=== PATIENT | male | born 1955 | race Caucasian/White ===

== ENCOUNTER 2016-11-19 08:20 | Observation (INO) | payer SELFPAY ==
[2016-11-19] MEDS ORDERED: PANTOPRAZOLE INJECTION 80 MG in SODIUM CHLORIDE 0.9% 100ML 80 ML IVPB ONE (09:12)
[2016-11-19] MEDS ORDERED: NITROGLYCERIN 0.4 MG 25 EA TAB SL ONE (09:12)
[2016-11-19] MEDS ORDERED: SODIUM CHLORIDE 0.9% (FLUSH) 10 ML SYG IV PRN ×2 (09:12→15:49)
[2016-11-19] MEDS ORDERED: ASPIRIN TABLET 325 MG TAB PO ONE (09:12)
[2016-11-19] MEDS ORDERED: SODIUM CHLORIDE 0.9% 100ML 100 ML IVPB ONE (09:41)
[2016-11-19] MEDS ORDERED: PANTOPRAZOLE SODIUM IV 40 MG VIAL ONE (09:41)
--- NOTE | 2016-11-19 09:41 | ED.PDOC ---
History of Present Illness - General Chief Complaint: GI Problem Stated Complaint: Dark tarry stools Time Seen by Provider: 11/19/16 08:55 Source: patient, RN notes reviewed, Vital Signs reviewed Exam Limitations: no limitations - History of Present Illness Initial Comments: Romain Ji61 y/o male stated that broke into cold sweats last night and felt nauseated then went to have bowel movement noticed black tarry stool on wiping his stool.Also on waking up this am had stabbing epigastric pain going up to his chest with sob.Gone on arrival at er. No hematemasis;no recurrent nausea/vomiting. Had been taking multiple doses of aleve and ibuprofen a day for his right foot pain for the last one year. Timing/Duration: 24 hours Severity: moderate Improving Factors: nothing Worsening Factors: nothing Associated Symptoms: shortness of breath Allergies/Adverse Reactions: Allergies NO KNOWN ALLERGY Allergy (Verified 11/19/16 08:46) Home Medications: Ambulatory Orders Anti-Depressant PO DAILY 11/19/16 Bp Med PO DAILY 11/19/16 Cholesterol Med PO DAILY 11/19/16 Review of Systems - Review of Systems Constitutional: States: no symptoms reported EENTM: States: no symptoms reported Respiratory: States: see HPI Cardiology: States: see HPI Gastrointestinal/Abdominal: States: see HPI Genitourinary: States: no symptoms reported Musculoskeletal: States: no symptoms reported, joint pain - right foot Skin: States: no symptoms reported Neurological: States: no symptoms reported Endocrine: States: no symptoms reported Hematologic/Lymphatic: States: no symptoms reported Past Medical History (General) - Patient Medical History Hx Stroke: No Hx Cardiac Disorders: Yes - Hypercholesterolemia Hx Congestive Heart Failure: No Hx Hypertension: Yes Hx Diabetes: No Hx MRSA: No Hx Other PMH: Yes - chronic right foot pain Surgical History: cholecystectomy, other - foot surgery right - Vaccination History Hx Influenza Vaccination: No Hx Pneumococcal Vaccination: No - Social History Hx Tobacco Use: Yes Years Tobacco Use: 48 Cigarettes Packs Per Day: 30 Hx Alcohol Use: No Hx Depression: No - Activities of Daily Living Patient Lives Alone: No - family Family Medical History - Family History Father Living Status: Hx Family Hypertension: Yes Hx Cardiac Disease: Yes - mom,dad,sister-cad Hx Family Cancer: Yes - mom-lung Physical Exam - Physical Exam General Appearance: Alert, Comfortable, No apparent distress Eye Exam: bilateral normal Ears, Nose, Throat: hearing grossly normal, normal ENT inspection, normal pharynx Neck: non-tender, full range of motion, supple Respiratory: chest non-tender, lungs clear, normal breath sounds, no respiratory distress Cardiovascular/Chest: normal peripheral pulses, regular rate, rhythm, no gallop , no JVD, systolic murmur - g 2/6 Peripheral Pulses: radial,right: 2+, radial,left: 2+ Gastrointestinal/Abdominal: normal bowel sounds, non tender, soft, no organomegaly Rectal Exam: normal rectal tone, black stool, heme positive stool Back Exam: normal inspection, no CVA tenderness, no vertebral tenderness Extremity: normal range of motion, non-tender, normal inspection Neurologic: no motor/sensory deficits, alert, normal mood/affect, oriented x 3 Skin Exam: normal color, warm/dry Lymphatic: no adenopathy Progress - Results/Orders Results/Orders: Vital Signs - 8 hr 11/19/16 11/19/16 11/19/16 08:47 09:14 09:38 Temperature 98.1 F Pulse Rate [ 90 83 Apical] Respiratory 22 22 Rate Blood Pressure 113/75 149/75 [Left Arm] O2 Sat by Pulse 94 L 94 L 95 Oximetry 11/19/16 11/19/16 11/19/16 09:45 10:14 10:20 Temperature 97.7 F Pulse Rate [ 87 84 86 Apical] Respiratory 22 22 22 Rate Blood Pressure 118/79 133/84 90/59 [Left Arm] O2 Sat by Pulse 93 L 91 L 92 L Oximetry 11/19/16 09:12 IV Care:Saline Lock per [facility] QSVAFT Telemetry .ONCE Sodium Chloride 0.9% (Flush) [Saline Flush Syringe] 10 ml IV PRN PRN EKG Stat Pulse Ox Stat Chest,1 View [RAD] Stat 11/19/16 09:13 Pulse Oximetry Assessment DAILY 11/19/16 09:46 Foot,Right 2 Views [RAD] Stat Laboratory Results WBC 12.7 K/mm3 (4.8-10.8) H 11/19/16 09:45 RBC 5.25 M/mm3 (4.70-6.10) 11/19/16 09:45 Hgb 15.7 gm/dL (14.0-18.0) 11/19/16 09:45 Hct 48.1 % (42.0-52.0) 11/19/16 09:45 MCV 91.5 fl (80.0-94.0) 11/19/16 09:45 MCH 29.8 pg (27.0-31.0) 11/19/16 09:45 MCHC 32.6 g/dL (33.0-37.0) L 11/19/16 09:45 RDW 14.9 % (11.5-14.5) H 11/19/16 09:45 Plt Count 169 K/mm3 (130-400) 11/19/16 09:45 MPV 8.7 fl (7.40-10.4) 11/19/16 09:45 Absolute Neuts (auto) 10.00 K/uL (1.8-6.8) H 11/19/16 09:45 Absolute Lymphs (auto) 1.40 K/uL (1.0-3.4) 11/19/16 09:45 Absolute Monos (auto) 1.10 K/uL (0.2-0.8) H 11/19/16 09:45 Absolute Eos (auto) 0.10 K/uL (0.0-0.4) 11/19/16 09:45 Absolute Basos (auto) 0.10 K/uL (0.0-0.1) 11/19/16 09:45 Neutrophils % 78.8 % (42.0-78.0) H 11/19/16 09:45 Lymphocytes % 10.8 % (20.0-50.0) L 11/19/16 09:45 Monocytes % 8.7 % (2.0-9.0) 11/19/16 09:45 Eosinophils % 1.0 % (1.0-5.0) 11/19/16 09:45 Basophils % 0.7 % (0.0-2.0) 11/19/16 09:45 PT 11.4 SECONDS (9.4-12.5) 11/19/16 09:45 INR 1.010 11/19/16 09:45 PTT (SP) 28.6 SECONDS (25.1-36.5) 11/19/16 09:45 D-Dimer, Quantitative < 230 ng/mL (0-230) 11/19/16 09:45 Sodium 138 mmol/L (135-145) 11/19/16 09:45 Potassium 5.2 mmol/L (3.6-5.0) H 11/19/16 09:45 Chloride 102 mmol/L (101-111) 11/19/16 09:45 Carbon Dioxide 30 mmol/L (21-31) 11/19/16 09:45 Anion Gap 11.2 (12-18) L 11/19/16 09:45 BUN 37 mg/dL (7-18) H 11/19/16 09:45 Creatinine 0.64 mg/dL (0.6-1.3) 11/19/16 09:45 BUN/Creatinine Ratio 57.8 (10-20) H 11/19/16 09:45 Random Glucose 119 mg/dL (70-105) H 11/19/16 09:45 Serum Osmolality 285.5 mOsm/L (275-295) 11/19/16 09:45 Uric Acid mg/dL (2.6-7.2) 11/19/16 09:45 Calcium 9.0 mg/dL (8.4-10.2) 11/19/16 09:45 Magnesium 2.1 mg/dL (1.8-2.5) 11/19/16 09:45 Total Bilirubin 0.9 mg/dL (0.2-1.0) 11/19/16 09:45 Direct Bilirubin 0.1 mg/dL (0-0.2) 11/19/16 09:45 Indirect Bilirubin 0.8 mg/dL (0.2-0.8) 11/19/16 09:45 AST 21 IU/L (10-42) 11/19/16 09:45 ALT 22 IU/L (10-60) 11/19/16 09:45 Alkaline Phosphatase 71 IU/L (42-121) 11/19/16 09:45 Creatine Kinase 177 IU/L (38-174) H 11/19/16 09:45 CK-MB (CK-2) 5.7 ng/mL (0.0-4.4) H* 11/19/16 09:45 CK-MB (CK-2) % 3.22 % (0.0-3.5) 11/19/16 09:45 Troponin I 0.03 ng/mL (0.01-0.05) 11/19/16 09:45 B-Natriuretic Peptide 17.4 pg/ml (0-100) 11/19/16 09:45 Serum Total Protein 6.7 gm/dL (6.4-8.2) 11/19/16 09:45 Albumin 3.8 g/dl (3.2-5.5) 11/19/16 09:45 Urine Color Yellow (Yellow) 11/19/16 09:59 Urine Appearance Clear (Clear) 11/19/16 09:59 Urine pH 6.0 (4.5-7.8) 11/19/16 09:59 Ur Specific [place] 1.010 (1.005-1.030) 11/19/16 09:59 Urine Protein Negative mg/dL 11/19/16 09:59 Urine Glucose (UA) Negative mg/dL (Negative) 11/19/16 09:59 Urine Ketones Negative mg/dL (NEGATIVE) 11/19/16 09:59 Urine Blood Negative (Negative) 11/19/16 09:59 Urine Nitrite Negative 11/19/16 09:59 Urine Bilirubin Negative (NEGATIVE) 11/19/16 09:59 Urine Urobilinogen 0.2 mg/dL (0.2-1.0) 11/19/16 09:59 Ur Leukocyte Esterase Negative (Negative) 11/19/16 09:59 Urine RBC 0 /hpf 11/19/16 09:59 Urine WBC 0 /hpf 11/19/16 09:59 Ur Epithelial Cells 0-1 /hpf 11/19/16 09:59 Urine Bacteria 0 11/19/16 09:59 Stool Occult Blood Positive 11/19/16 09:06 Urine Opiates Screen Negative ng/mL (2000) 11/19/16 09:48 Urine Barbiturates Negative ng/mL (200) 11/19/16 09:48 Ur Phencyclidine Scrn Negative ng/mL (25) 11/19/16 09:48 U Amphetamin/Meth Scrn Negative ng/mL (1000) 11/19/16 09:48 U Benzodiazepines Scrn Negative ng/mL (200) 11/19/16 09:48 U Cocaine Metab Screen Negative ng/mL (300) 11/19/16 09:48 U Cannabinoids Screen Negative ng/mL (50) 11/19/16 09:48 Vital Signs - 8 hr 11/19/16 11/19/16 11/19/16 08:47 09:14 09:38 Temperature 98.1 F Pulse Rate [ 90 83 Apical] Respiratory 22 22 Rate Blood Pressure 113/75 149/75 [Left Arm] O2 Sat by Pulse 94 L 94 L 95 Oximetry 11/19/16 11/19/16 11/19/16 09:45 10:14 10:20 Temperature 97.7 F Pulse Rate [ 87 84 86 Apical] Respiratory 22 22 22 Rate Blood Pressure 118/79 133/84 90/59 [Left Arm] O2 Sat by Pulse 93 L 91 L 92 L Oximetry 11/19/16 11/19/16 11/19/16 10:29 10:59 11:21 Temperature Pulse Rate [ 88 85 84 Apical] Respiratory 22 22 20 Rate Blood Pressure 118/74 125/58 116/85 [Left Arm] O2 Sat by Pulse 92 L 93 L 90 L Oximetry 11/19/16 11:24 Temperature Pulse Rate [ 92 H Apical] Respiratory 20 Rate Blood Pressure 94/56 [Left Arm] O2 Sat by Pulse 91 L Oximetry Discuss test result with patient as well as gi bleeding from nsaid use recommending admit to hospital for obs agreed with plan. - EKG/XRAY/CT EKG: Sinus, no ST T wave changes Comments: heart Rate-92 Departure - Departure Clinical Impression: GI bleed due to NSAIDs Time of Disposition: 11:28 - D/W Dr. Ruffin-Hospitalist for admit obs Disposition: Admit Patient Condition: Fair Departure Forms: Patient Portal Self Enrollment Referrals: Elissa Hutton NP [Primary Care Provider] - 1-2 Weeks Home Medications: Ambulatory Orders Anti-Depressant PO DAILY 11/19/16 Bp Med PO DAILY 11/19/16 Cholesterol Med PO DAILY 11/19/16
[2016-11-19] MEDS ORDERED: SODIUM CHLORIDE 0.9% 500ML 500 ML IVS ONE (11:02)
[2016-11-19] MEDS ORDERED: NICOTINE PATCH 21 MG TD ONE (11:13)
--- NOTE | 2016-11-19 11:29 | RAD ---
EXAM DESCRIPTION: Foot,Right 2 Views CLINICAL HISTORY: pain COMPARISON: None FINDINGS: AP and lateral views of the right foot were submitted. There is an enthesophyte at the insertion of the Achilles tendon. There is no acute fracture or dislocation. Bone mineralization is within normal limits. There is no radiopaque foreign body material. IMPRESSION: No acute fracture or dislocation. Electronically signed by: Virgil Castro MD 11/19/2016 11:29 AM CDT
--- NOTE | 2016-11-19 12:18 | RAD ---
EXAM DESCRIPTION: Chest,1 View CLINICAL HISTORY: pain COMPARISON: October 21, 2015 FINDINGS: Cardiac silhouette is within normal limits. There is no focal parenchymal or pleural disease. There is no acute osseous process visualized. There is mild peribronchial cuffing at the central level which could be secondary to reactive airway disease. IMPRESSION: Mild peribronchial cuffing at the central level could be secondary to reactive airway disease. Electronically signed by: Virgil Castro MD 11/19/2016 12:19 PM CDT
--- NOTE | 2016-11-19 12:23 | HP ---
HISTORY OF PRESENT ILLNESS: This 61 year-old white male is placed in the hospital for overnight observation because of the sudden onset of noticeable gastrointestinal bleeding with black bowel movements yesterday afternoon. He has had some epigastric discomfort which has persisted. It is burning in character and no previous history of similar symptoms in the past. He did vomit once last evening but it was bile-stained acidic fluid with no blood in it. He did have a bowel movement yesterday afternoon. Part of the bowel movement was normal color and the last part of it was black in coloration. In the Emergency Room, he was noted to have a stool guaiac positive on digital exam. Tilt vitals did drop from a systolic of 125 supine down to 94 standing while the pulse increased from 85 to 94 per minute. The patient has a history of smoking in the past with chronic obstructive pulmonary disease as well as alcohol intake. He is followed by Elissa Hutton at the [facility]. The patient is placed in the hospital for continued evaluation and with reevaluation in the morning, and with initiation of vigorous therapy in the meantime, but especially close observation to rule out sudden onset of massive GI bleeding at which time medical intervention would be required. PAST MEDICAL HISTORY: 1. 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 2. History of hypertension. PAST SURGICAL HISTORY: 1. Right foot on 2 occasions with a benign tumor possibly a neuroma removed at [facility] in 2013 and 2014. This has reduced his ability to walk and has resulted in significant weight gain, according to the patient. 2. Also had a history of his gallbladder removed in the past. CURRENT MEDICATIONS: 1. Lisinopril 20 mg 2 a day. 2. Cholesterol pill. 3. Depression medicine. Please refer to nurses' notes for an up to date verified list of medications taken. ALLERGIES: NONE. FAMILY HISTORY: Positive for hypertension, cancer and coronary artery disease. 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 He is a smoker of 1 -1/2 packs per day for 50 years or an equivalence of 75 pack year history of smoking. He also admits to drinking "a little" of alcohol on a regular basis. PHYSICAL EXAMINATION: VITAL SIGNS: Afebrile, pulse 85, blood pressure 124/69, pulse oximetry 92% on room air. Weight 111.1 kilos. GENERAL: The patient is awake and alert and oriented in no acute distress. Coloration is fairly good at this time. HEENT: Unremarkable. NECK: Supple. CHEST: Lungs have diminished breath sounds, occasional cough noted. He appears to be somewhat dyspneic even on mild exertion. CARDIOVASCULAR: A semi-positive tilt is noted with systolic blood pressure dropping from 125 to 94 or 30 points from supine to standing while the pulse only increased by 10 points. He is having some epigastric discomfort which also should be ruled out as a cardiac event. The patient did receive a dose of GI cocktail which seemed to significantly reduce the level and intensity of the discomfort in his epigastric region suggesting a GI etiology potentially. ABDOMEN: Activity of bowel tones are noted. Tenderness in the epigastrium and to the right of midline at the periumbilical region. No organomegaly noted. No rebound tenderness. Abdomen is quite tight, somewhat distended and obesity present. EXTREMITIES: Fairly well formed with no significant pedal edema. NEUROLOGIC: The patient is awake, alert and oriented and communicative. No focal neurological deficits evident. Exam of recent bowel movement after admission to the hospital reveals a malodorous collection of stool with approximately 2 cups of red blood noted along with black partially digested blood mixed into the specimen in the commode. LABORATORY: White count of 12,700, hemoglobin 15.7, platelet count 167, neutrophils 80%. INR of 1.01. Chemistries show potassium elevated at 5.2, BUN elevated to 37 possibly from blood absorption with a normal creatinine of 0.64, glucose 119, magnesium 2.1. Liver enzymes are normal. Troponin is 0.03, CK is 177, beta natriuretic peptide 17.4. Albumin 3.8. Urinalysis within normal limits. Stool guaiac positive and urine drug screen negative. No cultures obtained yet. X-ray of the foot showed no acute abnormalities. Chest x-ray showed some emphysema with no acute findings otherwise. ASSESSMENT: 1. Acute upper gastrointestinal hemorrhage with melena and hematochezia. 2. Elevated BUN with normal creatinine probably secondary to absorption of blood products in the intestines to be observed. 3. Borderline positive tilt blood pressure pulse suggesting a gastrointestinal bleed of sufficient quantity to result in the same. 4. Hyperkalemia possibly secondary to absorption of blood products. 5. History of chronic obstructive pulmonary disease. 6. History of chronic tobacco abuse encouraged to stop. 7. History of neuromas, especially right foot, recurrent. 8. History of hypertension. 9. History of hypercholesterolemia. PLAN: The patient is willing to be observed overnight with repeat lab studies in the morning. If significant augmentation of the flow of blood is noted, tenderness may require transfer on an emergent basis to a GI service for intervention. In the meantime, we will try to keep him on a full liquid diet and observe closely. Repeat lab studies in the morning. Liver enzymes normal which hopefully reduces the risk somewhat of portal hypertension and associated esophageal varices as an etiology of the bleeding. Continue on Carafate and the Protonix. Reevaluation in the morning. #[id number] [facility]
[2016-11-19] MEDS ORDERED: LIDOCAINE VIS-MYLANTA 30 ML UD PO ONE (14:58)
[2016-11-19] MEDS ORDERED: ONDANSETRON INJ 4 MG/2 ML VIAL IV PRN (15:54)
[2016-11-19] MEDS ORDERED: ACETAMINOPHEN 325 MG TAB PO PRN (15:54)
[2016-11-19] MEDS ORDERED: IV SET AND CAP CHANGE INJ INJ SCH (16:00)
[2016-11-19] MEDS: SODIUM CHLORIDE 0.9% 1000ML 1,000 ML IVS PRN (16:52)
[2016-11-19] MEDS: IPRATROPIUM/ALBUTEROL 3 ML VIAL INH SCH ×2 (16:54→20:24)
[2016-11-19] MEDS ORDERED: LISINOPRIL 10 MG TAB PO SCH (21:00)
[2016-11-19] MEDS ORDERED: CITALOPRAM HBR 20 MG TAB PO SCH (21:00)
[2016-11-19] MEDS: SUCRALFATE 1 GM/10 ML 1 GM UD PO SCH (21:32)
[2016-11-20] MEDS: SODIUM CHLORIDE 0.9% 1000ML 1,000 ML IVS PRN (03:54)
[2016-11-20] MEDS: SUCRALFATE 1 GM/10 ML 1 GM UD PO SCH ×3 (06:25→15:01)
[2016-11-20] MEDS ORDERED: OMEPRAZOLE CAP 20 MG CAP PO SCH (06:30)
[2016-11-20] MEDS: IPRATROPIUM/ALBUTEROL 3 ML VIAL INH SCH ×2 (08:50→13:00)
[2016-11-20] MEDS ORDERED: NICOTINE PATCH 21 MG TD SCH (09:00)
[2016-11-20 14:46] VITALS: O2SAT 92
[2016-11-20 15:08] VITALS: BP 124/62; TEMP 96.7
--- NOTE | 2016-11-20 15:46 | DS ---
DISCHARGE DIAGNOSIS: 1. Acute upper gastrointestinal hemorrhage with associated melena and acute hematochezia, showing some resolution clinically. 2. Elevated BUN with normal creatinine, probably secondary to absorption of blood products in the intestines with followup suggested. 3. Borderline positive tilt blood pressure decrease with postural change, probably as a result of underlying hypovolemia associated with a fairly significant gastrointestinal bleed. 4. Hyperkalemia, showing improvement. 5. History of chronic obstructive pulmonary disease. 6. History of chronic tobacco abuse, encouraged to stop. 7. History of recurring neuromas in the right foot with symptoms presently still present. 8. History of hypertension, yet with hypotension being noted and hypertensive medications requiring adjustment accordingly. 9. History of hypercholesterolemia. HISTORY OF PRESENT ILLNESS: This 61-year-old, white male was placed in the hospital for overnight observation because of significant gastrointestinal bleeding with onset on the morning of admission. He noted a character change in his stools which combined initially brown color, but then had a transition to black. After admission to the hospital, he had several repeat episodes of fairly large stools, very malodorous with gross red blood being noted with melena associated. This eventually reverted back to his normal soft brown stool , suggesting a lessening of the significant blood loss noted upon admission. The patient was placed in the hospital and received initially some parenteral proton pump inhibition, switched over the oral therapy. Carafate as a coating mechanism was used as well as dietary intervention and further instruction. His condition stabilized to the point that he was able to be continued on outpatient therapy on the day of discharge. LABORATORY: White count of 12,800, decreasing to 9,500. Hemoglobin decreased from 15.7 to 13.2 with hydration contributing a little bit, but blood loss a major component. Platelet count was normal. Neutrophils were 70%. INR 1.01. D-dimer normal. Chemistries showed potassium initially 5.2, decreasing to 4.7. CO2 32, BUN 26, creatinine 0.68, glucose 110. Cardiac enzymes with troponin down to 0 on discharge. Liver enzymes within normal limits. Albumin 3.3. Urinalysis clean. Stool guaiac was positive on one occasion with the grossly blood stools not tested. Urine drug screen is negative. No cultures obtained. X-ray of the foot and chest x-ray showed no acute findings. PLAN: The patient is discharged home. He is scheduled to have a CBC, BMP drawn in the hospital laboratory at about 1:30 tomorrow afternoon with results to Elissa Hutton by the 3 o'clock appointment at [facility]. He is to continue on his home medications except the lisinopril is decreased from 40 mg to 5 mg and will observe his blood pressure closely since it is quite low at the time of his leaving the hospital. He is started on Prilosec 40 mg daily, continued on Carafate tablets 1 gram q.i.d. on an empty stomach. He will be started on multivitamins with iron and folic acid taken 1 daily with ferrous sulfate 325 mg daily for the next several weeks. He will observe for acute red blood or recurrence of the melena black stools in his bowel movements. Hs diet it to be bland, low-fat, soft for the next three to four weeks. If his blood count shows significant decrease from what it was in the hospital, Elissa Anni may consider referring the patient to Dr. London, GI specialist, at the [facility] on Sunday morning for an endoscopy exam and possible cautery if the bleeding is noted to persist. He is encouraged to stop all tobacco and alcohol intake. Close of his blood pressure since the blood pressure medicines have been reduced. Return if not improving. #[id number] [facility]
== END 2016-11-20 15:57 | disposition home or self-care (01) ==
LOC: ER 08:20 → INTOOBSV 12:23 → MS 12:23
PROVIDERS: ADMIT Emergency Medicine; ATTEND Emergency Medicine
DX: K92.2 Gastrointestinal hemorrhage, unspecified (principal); K92.1 Melena; E87.5 Hyperkalemia; J44.9 Chronic obstructive pulmonary disease, unspecified; F17.210 Nicotine dependence, cigarettes, uncomplicated; D36.13 Benign neoplasm of peripheral nerves and autonomic nervous system of lower limb, including hip; I10 Essential (primary) hypertension; I95.9 Hypotension, unspecified; E78.00 Pure hypercholesterolemia, unspecified; G89.29 Other chronic pain; M79.671 Pain in right foot; R06.02 Shortness of breath; Z79.899 Other long term (current) drug therapy; Z90.49 Acquired absence of other specified parts of digestive tract; Z82.49 Family history of ischemic heart disease and other diseases of the circulatory system; Z80.1 Family history of malignant neoplasm of trachea, bronchus and lung
CPT/HCPCS: 36415 ×3; 71010; 73620; 80048 ×2; 80053; 80076; 80307; 81001; 82270; 82550 ×2; 82553 ×2; 83880; 84484 ×2; 84550; 85025 ×3; 85379; 85610; 85730; 93005; 94640 ×4; 94760 ×6; 96365; 99284; 99407; G0378; J7030 ×2; J7040; J7050; J7620 ×4

== ENCOUNTER → 2016-11-21 | Outpatient (CLI) | payer SELFPAY | END | disposition home or self-care (01) | LOC: LAB.O 13:32 | PROVIDERS: ATTEND Emergency Medicine | DX: K92.2 Gastrointestinal hemorrhage, unspecified (principal) ==

== ENCOUNTER → 2018-09-27 | Outpatient (CLI) | payer MEDICARE, OTHER ==
--- NOTE | 2018-09-27 15:39 | MRI ---
EXAM DESCRIPTION: Lower Extremity,Right CLINICAL HISTORY: 63 years Male, TEARR OF FASCIAL LIGAMENT COMPARISON: Radiographs of the right foot dated 12/19/2016. MRI of the right foot dated 12/25/2014. TECHNIQUE : Multiplanar multiecho imaging of the right foot was performed without gadolinium administration. FINDINGS: The visualized flexor and extensor tendons appear normal. The Achilles tendon and plantar fascia also appear normal. 2.1 x 1.8 cm T2 hyperintense and T1 hypointense lesion is identified in the anterior aspect of the calcaneus. This has increased in size from 1.6 x 1 cm on prior examination dated 12/25/2014. This most likely represents a intraosseous ganglion cyst. The Lisfranc ligament is intact. No abnormal signal is noted in the visualized bones to suggest acute injury or avascular necrosis. IMPRESSION: 2.1 x 1.8 cm T2 hyperintense and T1 hypointense lesion is identified in the anterior aspect of the calcaneus. This has increased in size from 1.6 x 1 cm on prior examination dated 12/25/2014. This most likely represents a intraosseous ganglion cyst. Electronically signed by: Cori Arora MD 09/27/2018 3:36 PM CDT
== END ==
LOC: MRI 09:06
PROVIDERS: ATTEND Podiatrist Foot & Ankle Surgery
DX: M24.271 Disorder of ligament, right ankle (principal)

== ENCOUNTER → 2018-10-09 | Outpatient (CLI) | payer MEDICARE, OTHER ==
--- NOTE | 2018-10-09 14:48 | CT ---
Procedure: CT LUNG SCREENING Exam Date: 10/09/2018. Ordering Provider: Elissa Hutton Clinical Indication: NICOTINE DEPENDENCE . Current smoker. 50 pack years. This patient meets eligibility criteria for low-dose CT lung cancer screening. Comparison: Chest Radiograph 11/19/2016. Technique: Using a multislice scanner, sequential helical axial imaging was obtained in the thorax, 2.5 mm thickness, 2.5 mm separation, from the level of the thoracic inlet through the lung bases without IV contrast. A low dose protocol was utilized for BMI greater than 30: BMI: 33.7. CTDI: 2.93 mGy. 120. kVp. 45 mA. DLP 105.45 mGy centimeters 2D sagittal and coronal reconstructed images, 6.0 mm thickness, were obtained. This exam was performed according to our departmental dose optimization program which includes use of automated exposure control, adjustment of the mA and/or kV according to patient size and/or use of iterative reconstruction technique. Nodule measurements under 10 mm are given as mean value of 3 axes diameters. FINDINGS: Lungs and large airways: Dilated airspaces more numerous in the upper lung cristobal than the lower lung cristobal. Groundglass nodule in the base of the right upper lobe centrally measuring 11.0 x 11.4 x 7.4 mm on axial series 2, images 51-53. Subpleural groundglass nodule slightly more inferior and superior in the right lower lobe measures 10 x 10 x 6 mm on images 48 and 49. 8 millimeter groundglass nodule in the posterior right upper lobe on image 45. 11 mm groundglass nodule versus 5 mm semisolid nodule versus pleural thickening in the posterior recess of the right lower lobe laterally on images 103-2105. A millimeter groundglass nodule abutting the left hilar vascular structures on images 58 and 59 pleural parenchymal scarring in the inferior lingula. Bilateral dependent atelectasis left lower lobe recess laterally. 5 mm groundglass nodule versus pleural thickening abutting the posterior pleura in the left lower lobe on image 91. Pleural parenchymal scarring medial and inferior right middle lobe.. Pleura and space: Minimal pleural thickening but no effusion or pneumothorax. Mediastinum and wale: evaluation limited by low dose technique and lack of IV contrast. No dominant soft tissue masses or enlarged lymph nodes. Heart and great vessels: Atherosclerotic calcification in the aortic arch, descending thoracic aorta, proximal brachiocephalic vessels, and coronary arteries. Chest wall, lower neck, axillae: Evaluation also limited by same factors as described above. Calcification or malignant metallic shrapnel upright anterior left abdominal chest wall on axial image 99. Small thyroid gland. Upper abdomen: Included abdomen with no fascial thickening or fatty stranding in the peritoneal cavity and no free fluid or free air. Abdominal aorta and branch vessel atherosclerotic calcifications. Normal size of the adrenal glands. Osseous structures: Evaluation limited by low dose MIP technique. Incompletely healed versus nonunion fracture left posterior 10th rib laterally. No acute bony abnormalities. No lytic or blastic lesions. IMPRESSION: 1. Dilated airspaces in the upper lobes more than the lower lobes. Multiple groundglass nodules as described, mostly in the right upper lobe. Groundglass nodule versus partially solid nodule versus pleural thickening right lower lobe. [facility] Best Practice recommendations:. Please see below for Lung RADS category and FOLLOW-UP.* 2. Partially healed versus nonunion fracture of the left posterior lateral 10th rib. *Lung RADS category CATEGORY 2- Nodules with a very low likelihood (less than 1%) of becoming a clinically active cancer due to size or lack of growth. Nodules: Solid or part solid nodule(s) less than 6mm, new solid nodule less than 4mm. Ground glass nodule(s) less than 20mm or unchanged or slow growing ground glass nodule 20mm or greater. Cat 3 or 4 nodule unchanged for 3 or more months. FOLLOW-UP: Continue annual screening with a Low Dose Chest CT in 12 months for re-evaluation. Electronically signed by: Dewayne Cosby MD 10/09/2018 2:46 PM CDT
== END ==
LOC: CT 09:30
PROVIDERS: ATTEND Nurse Practitioner Family
DX: F17.200 Nicotine dependence, unspecified, uncomplicated (principal); R91.8 Other nonspecific abnormal finding of lung field; S22.32XD Fracture of one rib, left side, subsequent encounter for fracture with routine healing

== ENCOUNTER 2018-12-11 05:44 | Day surgery (SDC) | payer MEDICARE, MEDICAID ==
[2018-12-11] MEDS ORDERED: SODIUM CHLORIDE 0.9% 1000ML 1,000 ML ONE (06:51)
[2018-12-11] MEDS ORDERED: MIDAZOLAM INJ 2 MG/2 ML VIAL ONE (07:08)
[2018-12-11] MEDS ORDERED: LACTATED RINGERS 1,000 ML IVS ONE (09:15)
--- NOTE | 2018-12-11 09:49 | OP ---
DATE OF PROCEDURE: 12/11/18 PREOPERATIVE DIAGNOSIS: 1. Melena. 2. Colorectal cancer screening. POSTOPERATIVE DIAGNOSIS: 1. Gastric ulcers. 2. Gastritis. 3. Colonic polyps. 4. Hemorrhoids. PROCEDURE: 1. Esophagogastroduodenoscopy. 2. Colonoscopy with polypectomy. SURGEON: Hector Adams MD ANESTHESIA: Monitored anesthesia care. ESTIMATED BLOOD LOSS: Less than 5 mL. COMPLICATIONS: None. PROCEDURE: The patient was placed in the left lateral decubitus position. A time-out was performed. After deep sedation was achieved, the Olympus standard upper endoscope was inserted through the oropharynx and into the proximal esophagus and advanced to the second portion of the duodenum under direct visualization. The endoscope was then progressively withdrawn and the duodenal, stomach and esophageal lumens were evaluated. Retroflexion was performed in the stomach. The endoscope was then withdrawn and we proceeded with the colonoscopy. The stretcher was rotated 180 degrees. A digital rectal exam was performed and was noted to be unremarkable. The adult colonoscope was inserted through the anus, into the rectum and advanced to the cecum under direct visualization without difficulty. The patient's bowel preparation was good. The cecum was identified by the ileocecal valve and the appendiceal orifice. Photodocumentation of these locations was performed. The endoscope was then progressively withdrawn and the total colonic lumen evaluated. Retroflexion was performed in the rectum. The endoscope was then withdrawn and the procedure terminated. The patient tolerated the procedure well with no immediate complications. EGD FINDINGS: 1. Esophagus: The esophagus was unremarkable. 2. Stomach: Two small cratered gastric ulcers were seen in the prepyloric area. There was no stigmata of recent bleeding. Erosive gastritis characterized by gastric erosions, erythema and edema was seen in a patchy distribution throughout the antrum and body. Random gastric biopsies were taken to rule out H. pylori. 3. Duodenum: The first and second portions of the duodenum were urinalysis. COLONOSCOPY FINDINGS: 1. Two polyps, both semi-pedunculated, measuring 10 and 15 mm were found in the descending colon. These polyps were both removed with a hot snare and retrieved for pathology. 2. Five polyps were found in the sigmoid colon. These polyps ranged in size from 10 mm to 20 mm and were both semi-pedunculated and pedunculated. These polyps were all removed with a hot snare and retrieved for pathology. 3. Two polyps were found at the rectosigmoid junction. These polyps measured 2 and 3 cm respectively. These polyps were both pedunculated. Both polyps were successfully removed with a hot snare and retrieved for pathology. 4. One polyp was found in the rectum measuring 4 mm, sessile in nature. This polyp was removed with a cold snare and retrieved for pathology. 5. Grade 2 non-bleeding internal hemorrhoids were seen upon retroflexion in the rectum. IMPRESSION: 1. Gastric ulcers. 2. Erosive gastritis, biopsied. 3. Multiple polyps, 10 polyps were removed on today's exam. 4. Grade 2 non-bleeding internal hemorrhoids. RECOMMENDATIONS: 1. Okay to discharge home once the patient meets discharge criteria. 2. Avoid aspirin and NSAIDs. 3. Await pathology results. 4. Repeat colonoscopy in 1 year. 5. Followup in the GI clinic with Dr. Adams in 6 months. #[id number] MTDD
[2018-12-11] MEDS ORDERED: LIDOCAINE 1% 10 ML VIAL INJ ONE (10:00)
[2018-12-11] MEDS ORDERED: PROPOFOL 200 MG/20 ML VIAL IV ONE (10:00)
[2018-12-11 10:26] VITALS: BP 159/80; TEMP 96.6; O2SAT 94
== END 2018-12-11 10:15 | disposition home or self-care (01) ==
LOC: AMB 05:44
PROVIDERS: ATTEND Internal Medicine Gastroenterology
DX: K92.1 Melena (principal); D12.7 Benign neoplasm of rectosigmoid junction; D12.4 Benign neoplasm of descending colon; D12.5 Benign neoplasm of sigmoid colon; K63.5 Polyp of colon; K64.1 Second degree hemorrhoids; K29.50 Unspecified chronic gastritis without bleeding; B96.81 Helicobacter pylori [H. pylori] as the cause of diseases classified elsewhere; K52.9 Noninfective gastroenteritis and colitis, unspecified; K25.9 Gastric ulcer, unspecified as acute or chronic, without hemorrhage or perforation; I10 Essential (primary) hypertension
CPT/HCPCS: 00813; 43239; 45385; 88305; J2250; J3490; J7030; J7120

== ENCOUNTER 2019-06-20 19:19 | Emergency (ER) | payer MEDICARE, MEDICAID ==
--- NOTE | 2019-06-20 13:21 | MRI ---
EXAM DESCRIPTION: Lumbar Spine w/o Contrast CLINICAL HISTORY: 63 years Male, RADICULOPATHY COMPARISON: None available. TECHNIQUE: Multiplanar multiecho imaging of the lumbar spine was performed without intravenous contrast administration. FINDINGS: Straightening of the normal lordotic curvature of the lumbar spine. The vertebral body heights are well-maintained with no acute compression deformity. Multilevel intervertebral disc space narrowing is noted. The conus medullaris terminates at T12-L1 intervertebral disc space. The visualized spinal cord demonstrates no signal abnormality. End plate degenerative changes are identified at L4-L5 and L5-S1 levels. L1-L2: 2 mm diffuse disc bulge and facet arthropathy with no canal stenosis. Mild bilateral neural foraminal narrowing is noted. L2-L3: 2 mm diffuse disc bulge and facet arthropathy with no central canal stenosis. Mild bilateral neural foraminal narrowing. L3-L4: 2 mm diffuse disc bulge and facet arthropathy with no central canal stenosis. Mild bilateral neural foraminal narrowing. L4-L5: Disc desiccation and complete loss of disc height. 8 mm central disc protrusion with resultant severe central canal stenosis. The thecal sac measures 3.3 mm. Severe bilateral lateral recess narrowing and moderate to severe bilateral neural foraminal narrowing is also noted. L5-S1: Disc desiccation and loss of complete loss of disc height. 4 mm diffuse disc bulge with no central canal stenosis. Moderate right and moderate to severe left neural foraminal narrowing is noted secondary to facet arthropathy. The visualized prevertebral and paravertebral soft tissues appear unremarkable. IMPRESSION: Multilevel degenerative disc disease and facet arthropathy throughout the lumbar spine with changes worse at L4-L5 and L5-S1 levels as described above. Electronically signed by: Cori Arora MD 06/20/2019 1:19 PM [facility]
--- NOTE | 2019-06-20 13:28 | MRI ---
EXAM DESCRIPTION: Cervical Spine CLINICAL HISTORY: 63 years Male, RADICULOPATHY COMPARISON: None available. TECHNIQUE: Multiplanar, multiecho imaging of the cervical spine was performed without gadolinium administration. FINDINGS: The vertebral body heights are well-maintained with no acute compression deformity. Multilevel intervertebral disc space narrowing is noted. The visualized spinal cord demonstrates no signal abnormality. The visualized prevertebral and paravertebral soft tissues appear grossly unremarkable. C2-C3: 2 mm diffuse disc bulge with no central canal stenosis. Mild right and moderate to severe left neural foraminal narrowing is noted. C3-C4: 2 mm diffuse disc bulge with mild central canal stenosis. The thecal sac measures 1 cm. Moderate to severe left neural foraminal narrowing is noted secondary to uncovertebral joint arthropathy. C4-C5: 4 mm posterior disc osteophyte complex with mild central canal stenosis. Mild to moderate right and mild left neural foraminal narrowing is noted secondary to uncovertebral joint arthropathy. C5-C6: Mild central canal stenosis secondary to 3 mm posterior disc osteophyte complex. Moderate to severe right and moderate left neural foraminal narrowing secondary to uncovertebral joint arthropathy. C6-C7: Mild central canal stenosis secondary to posterior disc osteophyte complex. Moderate to severe right and mild left neural foraminal narrowing is noted secondary to uncovertebral joint arthropathy. C7-T1: No significant central canal stenosis. Moderate left neural foraminal narrowing secondary to uncovertebral joint arthropathy. IMPRESSION: Multilevel degenerative disc disease and uncovertebral joint arthropathy throughout the cervical spine with variable degrees of neural foraminal narrowing as described above. Electronically signed by: Cori Arora MD 06/20/2019 1:27 PM [facility]
--- NOTE | 2019-06-20 19:53 | CT ---
PROCEDURE: Chest w/o Contrast CLINICAL HISTORY: 63 years Male right lower rib trauma COMPARISON: None. TECHNIQUE: Contiguous axial images obtained through the chest without IV contrast. Reformatted images obtained. This exam was performed according to our department optimization program which includes automated exposure control, adjustment of the mA and/or kv according to patient size and/or use of iterative reconstruction technique. FINDINGS: Foci of calcification in aorta and in the coronary arteries. No evidence of pericardial or pleural effusion. Minimally displaced fracture of the right anterolateral eighth rib. No additional acute rib fractures are noted. No pneumothorax or significant pleural thickening. No acute consolidation or pulmonary contusion No significant thoracic adenopathy. Mild degenerative changes in the spine. Sternum and manubrium appear intact. IMPRESSION: Fracture of the right anterolateral eighth rib without underlying pulmonary contusion or evidence of pneumothorax Vascular calcification in the chest and abdomen Electronically signed by: Mary Be MD 06/20/2019 7:52 PM [employer]
[2019-06-20] MEDS ORDERED: KETOROLAC TROMETHAMINE INJ 30 MG/ML VIAL IM ONE (19:59)
--- NOTE | 2019-06-20 20:02 | ED.PDOC ---
History of Present Illness - General Chief Complaint: Trauma Stated Complaint: dancing and fell onto chair arm Time Seen by Provider: 06/20/19 19:22 Source: patient Exam Limitations: no limitations - History of Present Illness Initial Comments: the patient is a 63-year-old male presented to emergency room after having tripped and fallen while moderately intoxicated with alcohol and having hit his right anterior rib cage on the arm of the chair. He does have point tenderness over the anterior lateral right lower rib cage. No obvious bruising. No obvious deformity. Lungs sounds are clear. The patient does smoke. No syncope. No chest pain otherwise. No shortness of breath otherwise. Timing/Duration: momentarily Severity: moderate Improving Factors: nothing Worsening Factors: movement Associated Symptoms: chest pain Allergies/Adverse Reactions: Allergies NO KNOWN ALLERGY Allergy (Verified 11/19/16 08:46) Home Medications: Ambulatory Orders Atorvastatin Calcium [Lipitor] 40 mg PO DAILY 11/19/16 Citalopram Hydrobromide [Celexa] 40 mg PO DAILY 11/19/16 Lisinopril 40 mg PO QAM 12/09/18 Varenicline Tartrate [Chantix] 1 mg PO DAILY 12/09/18 Tramadol HCl 50 mg PO Q8HR PRN #20 tab 06/20/19 Review of Systems - Review of Systems Constitutional: States: no symptoms reported EENTM: States: no symptoms reported Respiratory: States: no symptoms reported Cardiology: States: chest pain Gastrointestinal/Abdominal: States: no symptoms reported Genitourinary: States: no symptoms reported Musculoskeletal: States: see HPI Skin: States: no symptoms reported Neurological: States: no symptoms reported Endocrine: States: no symptoms reported All other Systems: No Change from Baseline Past Medical History (General) - Patient Medical History Hx Seizures: No Hx Stroke: No Hx Asthma: No Hx of COPD: Yes Hx Cardiac Disorders: Yes - Hypercholesterolemia Hx Congestive Heart Failure: No Hx Pacemaker: No Hx Hypertension: Yes Hx Diabetes: No Hx MRSA: No - Vaccination History Hx Influenza Vaccination: No Hx Pneumococcal Vaccination: No - Social History Hx Tobacco Use: Yes Hx Alcohol Use: No Hx Substance Use: No Hx Depression: No Hx Physical Abuse: No Hx Emotional Abuse: No Family Medical History - Family History Father Living Status: Hx Family Asthma: No Hx Family Congestive Heart Failure: Yes Hx Family Hypertension: Yes Hx Family Stroke: No Hx Cardiac Disease: Yes - mom,dad,sister-cad Hx Family Diabetes: No Hx Family Cancer: Yes - mom-lung Physical Exam - Physical Exam General Appearance: Alert, Comfortable, No apparent distress Eye Exam: bilateral normal Ears, Nose, Throat: hearing grossly normal, normal ENT inspection Neck: full range of motion, supple Respiratory: lungs clear, normal breath sounds, no respiratory distress, no accessory muscle use, other - see history of present illness Cardiovascular/Chest: normal peripheral pulses, no edema, other - regular rate Peripheral Pulses: radial,right: 2+, radial,left: 2+ Gastrointestinal/Abdominal: non tender, soft Rectal Exam: deferred Back Exam: no CVA tenderness, no vertebral tenderness Extremity: normal range of motion, non-tender, normal inspection, no pedal edema, normal capillary refill Neurologic: sand carrier II-XII nml as tested, alert, normal mood/affect - he has mildly inebriated, oriented x 3 Skin Exam: normal color Progress - Progress Progress: 06/20/19 20:03 the patient's a 63-year-old male presenting to the emergency room after having accidentally fallen at home. He has sustained a mild right anter ior lateral lower minimally displaced rib fracture. No underlying pneumothorax, hemorrhage or significant pulmonary contusion. No evidence of any liver laceration. No evidence of other fractures. The patient is not hypoxic. The patient does need to take big deep breaths and make himself cough over the coming weeks to prevent pneumonia formation. He was given a dose of Toradol prior to discharge. He will also be written for low-dose tramadol for use over the coming weeks. I would recommend that he take 2 Aleve twice daily with food for the next 3 or 4 days to reduce discomfort. ER warnings were given for any acute worsening. Follow up with primary care doctor towards the end of next week. dalila cooley [id number] Departure - Departure Clinical Impression: Fracture of one rib Qualifiers: Encounter type: initial encounter Fracture type: closed Laterality: right Qualified Code(s): S22.31XA - Fracture of one rib, right side, initial encounter for closed fracture Disposition: Discharge to Home or Self Care Condition: Fair Departure Forms: ED Discharge - Pt. Copy, Patient Portal Self Enrollment Instructions: Rib Fracture (DC) Diet: regular diet Activity: increase activity as tolerated Referrals: Elissa Hutton NP [Primary Care Provider] - 1-2 Weeks Prescriptions: Tramadol HCl 50 mg PO Q8HR PRN #20 tab PRN Reason: Moderate Pain Home Medications: Ambulatory Orders Atorvastatin Calcium [Lipitor] 40 mg PO DAILY 11/19/16 Citalopram Hydrobromide [Celexa] 40 mg PO DAILY 11/19/16 Lisinopril 40 mg PO QAM 12/09/18 Varenicline Tartrate [Chantix] 1 mg PO DAILY 12/09/18 Tramadol HCl 50 mg PO Q8HR PRN #20 tab 06/20/19 Additional Instructions: the patient's a 63-year-old male presenting to the emergency room after having accidentally fallen at home. He has sustained a mild right anterior lateral lower minimally displaced rib fracture. No underlying pneumothorax, hemorrhage or significant pulmonary contusion. No evidence of any liver laceration. No evidence of other fractures. The patient is not hypoxic. The patient does need to take big deep breaths and make himself cough over the coming weeks to prevent pneumonia formation. He was given a dose of Toradol prior to discharge. He will also be written for low-dose tramadol for use over the coming weeks. I would recommend that he take 2 Aleve twice daily with food for the next 3 or 4 days to reduce discomfort. ER warnings were given for any acute worsening. Follow up with primary care doctor towards the end of next week.
[2019-06-20 20:55] VITALS: BP 107/50
[2019-06-20 21:31] VITALS: TEMP 97.3; O2SAT 92
== END 2019-06-20 21:00 | disposition home or self-care (01) ==
LOC: ER 19:19
DX: S22.31XA Fracture of one rib, right side, initial encounter for closed fracture (principal); J44.9 Chronic obstructive pulmonary disease, unspecified; E78.00 Pure hypercholesterolemia, unspecified; I10 Essential (primary) hypertension; F17.200 Nicotine dependence, unspecified, uncomplicated; Z79.899 Other long term (current) drug therapy; W01.198A Fall on same level from slipping, tripping and stumbling with subsequent striking against other object, initial encounter; Y93.41 Activity, dancing; Y92.9 Unspecified place or not applicable
CPT/HCPCS: 71250; J1885

== ENCOUNTER → 2019-11-05 | Outpatient (CLI) | payer MEDICARE, MEDICAID ==
--- NOTE | 2019-11-06 09:34 | CT ---
Procedure: CT LUNG SCREENING Exam Date: 05 Nov 2019. Ordering Provider: Elissa Hutton Clinical Indication: LUNG SCREEN current cigarette smoker. 56 pack years. This patient meets eligibility criteria for low-dose CT lung cancer screening. Comparison: Low-dose CT lung cancer screening examination October 2018. CT scan of the chest without contrast June 20. Technique: Using a multislice scanner, sequential helical axial imaging was obtained in the thorax, 2.5 mm thickness, 2.5 mm separation, from the level of the thoracic inlet through the lung bases without IV contrast. A low dose protocol was utilized for BMI greater than 30: BMI: 35.9. CTDI: 2.91 mGy. 120. kVp. 75 mA. DLP 110 mGy-cm. 2D sagittal and coronal reconstructed images, 6.0 mm thickness, were obtained. This exam was performed according to our departmental dose optimization program which includes use of automated exposure control, adjustment of the mA and/or kV according to patient size and/or use of iterative reconstruction technique. Nodule measurements under 10 mm are given as mean value of 3 axes diameters. FINDINGS: Lungs and large airways: Emphysematous blebs in the lung parenchyma more numerous in the upper lung cristobal. Subpleural 7.6 mm groundglass nodule lateral right upper lobe on series 2, image 49. An 0.4 mm nodule stable right upper lobe image 2/52. New 5 mm groundglass nodule in the right apex on image 2/28. Stable 6.5 mm groundglass nodule on image 2/46. Resolving medial scarring and atelectasis right middle lobe. Right upper lobe bulla. Bibasilar pleural-parenchymal scarring. Stable scarring in the inferior lingula. Stable groundglass nodule in the superior segment left lower lobe abutting the left hilum and pulmonary vascular structures on image 2/55. Density in the posterior recess of the right lower lobe abutting the pleura and diaphragm on the prior study is no longer present. Stable subpleural groundglass 7.7 mm nodule superior segment right lower lobe on images 2/54 and 2/53. Increased atelectatic density or scarring but no definite nodule posterior recess left lower lobe on images 2/1 101-111.. Pleura and space: Bilateral focal and diffuse thickening Mediastinum and wale: evaluation limited by low dose technique and lack of IV contrast. No enlarging lymph nodes. No dominant soft tissue masses. Mediastinal lipomatosis. Heart and great vessels: Atherosclerotic calcifications coronary arteries, aortic arch, several brachiocephalic vessels, and descending thoracic aorta. Chest wall, lower neck, axillae: Evaluation also limited by same factors as described above. Normal size axillary nodes. Upper abdomen: Evaluation limited by low-dose technique. No free air or free fluid in the included peritoneal space. Vascular calcifications. Surgical clips in the gallbladder fossa with no fluid. Osseous structures: Evaluation limited by low dose MIP technique. Again noted is nonunion fracture right posterior 10th rib. No acute bony abnormalities. IMPRESSION: Emphysematous changes in the upper lung cristobal. Multiple bilateral groundglass nodules are stable since the prior study. No new or abnormal nodules. No mass. No acute infiltrate.. [facility] Best Practice Recommendations: please see below for Lung RADS category and FOLLOW-UP.* *Lung RADS category CATEGORY 2- Nodules with a very low likelihood (less than 1%) of becoming a clinically active cancer due to size or lack of growth. Nodules: Perifissural nodule(s) < 10 mm. (526mm3). Solid or part solid nodule(s) less than 6mm (113.1 mm3), new solid nodule less than 4mm (33.5 mm3). Ground glass nodule(s) less than 30mm (41073.2 mm3) or unchanged or slow growing ground glass nodule 30mm or greater. Cat 3 or 4 nodule unchanged for 3 or more months. FOLLOW-UP: Continue annual screening with a Low Dose Chest CT in 12 months for re-evaluation. Electronically signed by: Dewayne Cosby MD 11/06/2019 9:33 AM CDT
== END ==
LOC: CT 10:30
PROVIDERS: ATTEND Nurse Practitioner Family
DX: Z87.891 Personal history of nicotine dependence (principal); J43.9 Emphysema, unspecified; R91.8 Other nonspecific abnormal finding of lung field

== ENCOUNTER → 2019-11-21 | Outpatient (CLI) | payer MEDICARE, MEDICAID ==
--- NOTE | 2019-11-21 10:25 | CT ---
EXAM DESCRIPTION: Abdomen/Pelvis w/wo Contrast CLINICAL HISTORY: 64 years Male, ABDOMINAL PAIN UNSPEC COMPARISON: CT of the chest June 20, 2019. MRI of the lumbar spine June 20, 2019. TECHNIQUE: CT of the abdomen and pelvis with and without contrast. This exam was performed according to our departmental dose-optimization program which includes automated exposure control, adjustment of the mA and/or kV according to patient size and/or use of iterative reconstruction technique. FINDINGS: Aside from vascular calcifications, no other pathologic calcifications are demonstrated within the abdomen and pelvis on the noncontrast portion of the study. Surgical clips are present within the gallbladder fossa. Kissing iliac stents are present. Mild dependent atelectasis lung bases. Mitral annular calcification. The liver is diffusely steatotic. No intrahepatic ductal dilatation is present. No aggressive liver lesions. Cholecystectomy changes. No pancreatic mass or inflammation. Spleen is normal in size. Bilateral adrenal glands are normal in appearance. No aggressive renal lesions are present. Symmetric enhancement and excretion of contrast. No obstructive uropathy. No abnormal bladder mucosal enhancement. The prostate is within normal limits for size. No gastrointestinal obstruction or inflammation. Normal appendix. No abdominal or pelvic lymphadenopathy. Lipomatous hypertrophy left inguinal canal. Complex multilevel degenerative changes of the lumbar spine. No aggressive lytic or blastic osseous lesions are demonstrated. Old nonhealed right-sided fracture deformities of the 10th and 8th right-sided ribs. Kissing bilateral iliac stents the patency of which is beyond the resolution of the contrast phase timing for this study. There is subcutaneous edema and skin thickening along the infraumbilical pannus of the abdomen. Third spacing or cellulitis. Correlate with direct visual inspection. IMPRESSION: No specific CT findings for abdominal pain. Chronic findings described above. Electronically signed by: Matt Velasquez MD 11/21/2019 10:24 AM CDT
== END ==
LOC: CT 08:27
PROVIDERS: ATTEND Nurse Practitioner Family
DX: R10.9 Unspecified abdominal pain (principal); K76.0 Fatty (change of) liver, not elsewhere classified; M47.896 Other spondylosis, lumbar region; I70.90 Unspecified atherosclerosis

== ENCOUNTER → 2019-12-31 | Outpatient (CLI) | payer MEDICARE, MEDICAID ==
--- NOTE | 2019-12-31 16:26 | RAD ---
EXAM DESCRIPTION: Lumbar Spine 4 Views including flexion and extension CLINICAL HISTORY: LUMBAR STENOSIS COMPARISON: Previous lumbar spine MRI June 20, 2019 TECHNIQUE: AP/lateral/flexion and extension lateral views FINDINGS: 4 view x-ray lumbar spine shows mild S-shaped curvature curvature of the thoracolumbar spine. Spurring is seen in the lower thoracic and lumbar spine. There is no vertebral compression. The intervertebral disc space height is decreased consistent disc degeneration at L1-2, L2-3, L4-5 and L5-S1. Prominent anterior spurring at all lumbar levels with prominent posterior spurring at L4-5 and L5-S1. There are no abnormalities of the posterior elements demonstrated.. Flexion and extension views show no change of alignment to suggest instability. Limited range of motion especially with flexion. Vascular calcification with vascular stents. Previous MRI showed disc disease most severe at L4-5 and L5-S1. See previous MRI report. IMPRESSION: Degenerative changes as described. Electronically signed by: Adalberto Hudson MD 12/31/2019 4:24 PM CDT
== END ==
LOC: RAD 11:47
PROVIDERS: ATTEND Neurological Surgery
DX: M48.061 Spinal stenosis, lumbar region without neurogenic claudication (principal); M51.36 Other intervertebral disc degeneration, lumbar region; M51.37 Other intervertebral disc degeneration, lumbosacral region

== ENCOUNTER → 2020-04-20 | Outpatient (CLI) | payer MEDICARE, MEDICAID | LOC: YCFC.O 15:59 | PROVIDERS: ATTEND Nurse Practitioner Family | DX: Z20.828 Contact with and (suspected) exposure to other viral communicable diseases (principal) ==

== ENCOUNTER → 2020-04-20 | Outpatient (CLI) | payer MEDICARE, MEDICAID ==
--- NOTE | 2020-04-20 12:55 | RAD ---
EXAM DESCRIPTION: Knee,Left Complete CLINICAL HISTORY: 64 years Male, unstable knee COMPARISON: None. Findings: 3 views/radiographs Location: Left knee No acute fracture or dislocation. Severe left knee osteoarthritis with obliteration of the medial compartment. No significant joint effusion. Tricompartmental osteophytes. Lateral patellofemoral narrowing. IMPRESSION: Left knee osteoarthritis. No acute osseous abnormality. Electronically signed by: Kevin Cool MD 04/20/2020 12:53 PM [facility]
--- NOTE | 2020-04-20 13:09 | CT ---
EXAM: Head INDICATION: abnormal vision . COMPARISON: None available TECHNIQUE: CT of the head was performed without IV contrast. Multiple axial images and multiplanar reconstructions were generated. This exam was performed according to our departmental dose-optimization program, which includes automated exposure control, adjustment of the mA and/or kV according to patient size and/or use of iterative reconstruction technique. FINDINGS: Streak artifact degrades the evaluation of the posterior fossa. No CT evidence for acute cortical infarct. Scattered foci of hypointensity in the subcortical and periventricular white matter, primarily at the right gomez radiata and centrum semiovale and adjacent to the left lateral ventricle. Findings are strongly favored to represent sequela of chronic microvascular ischemic disease, although other white matter processes are not entirely excluded. No acute intracranial hemorrhage. No mass effect or midline shift. No hydrocephalus. Global parenchymal volume loss. Intracranial atherosclerosis. Unremarkable appearance of the visualized globes and orbits. The calvaria and skull base are intact. The paranasal sinuses and mastoid air cells are clear. IMPRESSION: 1. No evidence for cortical infarct or intracranial hemorrhage. 2. Subcortical and periventricular white matter findings are nonspecific, but strongly favored to represent sequela of chronic microvascular ischemic disease. Other white matter processes are not entirely excluded. 3. Global parenchymal volume loss and intracranial atherosclerosis. Electronically signed by: Funmilayo Sims MD 04/20/2020 1:07 PM [employer]
== END ==
LOC: CT 09:00
PROVIDERS: ATTEND Nurse Practitioner Family
DX: M17.12 Unilateral primary osteoarthritis, left knee (principal); M25.369 Other instability, unspecified knee; R90.82 White matter disease, unspecified; I67.2 Cerebral atherosclerosis; G31.9 Degenerative disease of nervous system, unspecified; H54.7 Unspecified visual loss

== ENCOUNTER → 2020-05-13 | Outpatient (CLI) | payer MEDICARE, MEDICAID ==
--- NOTE | 2020-05-13 11:54 | RAD ---
EXAM DESCRIPTION: Knee,Left 1 or 2 Views CLINICAL HISTORY: 64 years, Male, KNEE PAIN COMPARISON: April 20, 2020 TECHNIQUE: Lateral view left knee FINDINGS: Standing only lateral view left knee demonstrate slight thickening of the suprapatellar bursa suggesting mild synovitis or small effusion. Bone on bone degenerative change again noted involving the medial joint compartment similar to that previously seen. Subchondral sclerosis medial tibial plateau is evident with mild marginal osteophyte formation. No acute fracture or dislocation. IMPRESSION: 1. Standing lateral view demonstrating moderate degenerative changes and questionable small effusion. Electronically signed by: Gordon Donahue MD 05/13/2020 11:52 AM [facility]
--- NOTE | 2020-05-13 11:55 | RAD ---
EXAM DESCRIPTION: Pelvis CLINICAL HISTORY: 64 years Male, LEFT HIP PAIN COMPARISON: None. FINDINGS: Single AP view of the pelvis demonstrates advanced degenerative disc disease L4-5 and at least moderate changes at L5-S1. The bony pelvis is intact with no abnormality of the SI joints or disruption of the bony pelvic ring. No fracture or dislocation evident. Minimal marginal osteophyte formation with preserved joint space involving each hip noted. Joint space is slightly narrower on the right than the left on this AP view. IMPRESSION: Moderate lower lumbar degenerative disc disease with mild degenerative changes both hips, right greater than left. Electronically signed by: Gordon Donahue MD 05/13/2020 11:53 AM [facility]
== END ==
LOC: RAD 07:56
PROVIDERS: ATTEND Orthopaedic Surgery
DX: M51.36 Other intervertebral disc degeneration, lumbar region (principal); M16.0 Bilateral primary osteoarthritis of hip; M17.12 Unilateral primary osteoarthritis, left knee